=== PATIENT | female | born 1985 | race Caucasian/White ===

== ENCOUNTER 2020-01-02 09:05 | Emergency (ER) | payer BC ==
[~2020-01-02] VITALS: Ht 165.1 cm; Wt 59.0 kg
[2020-01-02] MEDS ORDERED: IV NS 0.9% 1,000 ML BAG IV ONE (09:30)
[2020-01-02] MEDS ORDERED: ONDANSETRON HCL/PF 4 MG/2 ML VIAL IVP ONE (09:30)
[2020-01-02] MEDS ORDERED: ONDANSETRON HCL/PF 4 MG/2 ML VIAL ONE (09:38)
[2020-01-02 09:51] LABS: BASOPHILS # (AUTO) 0.1 /CMM (0.0-0.2); BASOPHILS % (AUTO) 0.6 % (0.0-2.0); EOSINOPHILS % (AUTO) 0.7 % (0.0-6.0); HEMATOCRIT 41 % (33-45); HEMOGLOBIN 13.5 g/dL (11.5-14.8); LYMPHOCYTES # (AUTO) 1.9 /CMM (0.8-4.8); LYMPHOCYTES % (AUTO) 20.5 % (20.0-44.0); MEAN CORPUSCULAR HGB CONC 33 g/dl (31.0-36.0); MEAN CORPUSCULAR VOLUME 94 fL (82-100); MONOCYTES # (AUTO) 0.6 /CMM (0.1-1.30); MONOCYTES % (AUTO) 6.5 % (2.0-12.0); NEUTROPHILS # (AUTO) 6.5 /CMM (1.8-8.9); NEUTROPHILS % (AUTO) 71.7 % (43.0-81.0); PLATELET COUNT (AUTO) 204 /CMM (150-450); RED BLOOD CELL COUNT(AUTO) 4.41 MIL/uL (4.0-5.2)
--- NOTE | 2020-01-02 09:52 | NUR ---
Patient awake alert non distress complain of dizziness ,obatined heplock RAC lab draw ,urine send to the lab .
[2020-01-02 10:07] LABS: CALCIUM, SERUM 8.6 mg/dL (8.5-10.1); CREATININE 0.8 mg/dL (0.6-1.3)
[2020-01-02 10:13] LABS: ALBUMIN 4.1 g/dL (3.4-5.0); BILIRUBIN,TOTAL 0.2 mg/dL (0.2-1.0); TOTAL PROTEIN, SERUM 7.6 g/dL (6.4-8.2)
[2020-01-02 10:56] VITALS: BP 123/67
--- NOTE | 2020-01-02 10:56 | NUR ---
Patient DC home instruction given agrees to see PMD in 2 days verbalized understanding I removed saline lock RAC noted cath intact no edema no pain .
--- NOTE | 2020-01-02 10:56 | NUR ---
Patient discharged to home in stable condition. Written and verbal after care instructions given. Patient verbalizes understanding of instruction.
== END 2020-01-02 10:59 | disposition home or self-care (01) ==
LOC: ER 09:09
DX: R42 Dizziness and giddiness (principal)
CPT/HCPCS: 36415; 70450; 71045; 80048; 80076; 84703; 85025; 96374; 99285; J2405; J7030